=== PATIENT | male | born 1985 | race Caucasian/White ===

== ENCOUNTER 2020-06-15 13:54 | Emergency (ER) | payer BC ==
[2020-06-15 15:03] LABS: HEMOGLOBIN 16.7 gm/dl (14.0-17.5); RED BLOOD COUNT 5.33 M/UL (4.20-5.50); WHITE BLOOD COUNT 7.2 K/UL (4.5-11.0)
[2020-06-15 15:24] LABS: BUN/CREATININE RATIO 14 (0-10)
== END 2020-06-15 16:58 | disposition home or self-care (01) ==
LOC: ER1 13:54
PROVIDERS: Emergency Medicine
DX: U07.1 COVID-19 (principal); I10 Essential (primary) hypertension; F17.220 Nicotine dependence, chewing tobacco, uncomplicated
CPT/HCPCS: 71045; 80053; 82550; 82553; 83874; 83880; 84484; 85025; 85379; 93005; 99285; U0002

== ENCOUNTER 2020-09-24 10:44 | Observation (INO) | payer BC ==
[~2020-09-24] VITALS: Ht 185.4 cm; Wt 136.1 kg
[2020-09-24 11:28] LABS: HEMOGLOBIN 18.5 gm/dl (14.0-17.5); RED BLOOD COUNT 5.99 M/UL (4.20-5.50); WHITE BLOOD COUNT 9.3 K/UL (4.5-11.0)
[2020-09-24 12:12] LABS: BUN/CREATININE RATIO 10 (0-10)
[2020-09-24] MEDS ORDERED: DILTIAZEM ER120 M1 PO (12:16)
[2020-09-24] MEDS ORDERED: COZAAR 50MG TAB50 MG PO (12:17)
[2020-09-24] MEDS ORDERED: PROTONIX40 MG PO (12:17)
[2020-09-24] MEDS ORDERED: FLECAINIDE ACE150 MG PO (12:17)
[2020-09-24] MEDS ORDERED: ZOLOFT100 MG PO (12:18)
[2020-09-24] MEDS ORDERED: WELLBUTRIN XL150 MG PO (12:18)
[2020-09-24] MEDS ORDERED: ADULT LOW DOSE81 MG PO (13:34)
[2020-09-24] MEDS ORDERED: DAILY VALUE1 EACH PO (13:35)
[2020-09-24] MEDS ORDERED: LOPRESSOR50 MG PO (17:27)
--- NOTE | 2020-09-25 16:39 | NUR ---
PATIENTS FIGURE 8 PULLED AT 1351. NO SIGNS OF HEMTOMA OR BRUISING. ONLY SLIGHT REDNESS AT SITE THAT WAS THERE WHEN PATIENT ARRIVED BACK FROM PROCEDURE.
[2020-09-26] MEDS ORDERED: ELIQUIS 5 MG TAB5 MG PO ×2 (09:37→10:07)
[2020-09-26] MEDS ORDERED: CARDIZEM 30MG T30 MG PO (09:37)
[2020-09-26] MEDS ORDERED: FLECAINIDE ACE100 MG PO (10:29)
== END 2020-09-26 12:55 | disposition home or self-care (01) ==
LOC: ER1 10:44 → CDU 14:01 → PROG CARE 14:01
PROVIDERS: Physician Assistant; ADMIT Internal Medicine
DX: I48.92 Unspecified atrial flutter (principal); I48.0 Paroxysmal atrial fibrillation; I16.0 Hypertensive urgency; I10 Essential (primary) hypertension; I44.30 Unspecified atrioventricular block; D75.1 Secondary polycythemia; E66.9 Obesity, unspecified; R94.31 Abnormal electrocardiogram [ECG] [EKG]; Z79.899 Other long term (current) drug therapy; Z79.82 Long term (current) use of aspirin; Z20.822 Contact with and (suspected) exposure to COVID-19
CPT/HCPCS: 36415; 71045; 80053; 82550; 82553; 82962; 83735; 83874; 84439; 84443; 84484; 85025; 93005; 93620; 93621; 96374; 96375; 96376; 99152; 99153; 99285; C1730; C1733; C1766; G0378; J1200; J1644; J1650; J2060; J2250; J3010; J7040; U0002